=== PATIENT | female | born 1960 | race Hispanic/Latino ===

== ENCOUNTER 2018-04-26 20:58 | Emergency (ER) | payer MEDICAID ==
[2018-04-26 20:58] VITALS: BMI 42.5
[2018-04-26 21:36] LABS: SQUAMOUS EPITHIAL 1 /hpf (0-5); URINE BACTERIA RARE (<OCC); URINE BILIRUBIN NEGATIVE (NEGATIVE); URINE BLOOD NEGATIVE (NEGATIVE); URINE CLARITY Hazy (Clear); URINE COLOR Yellow (YELLOW); URINE GLUCOSE (UA) NORMAL (Normal); URINE LEUKOCYTE ESTERASE 2+ Leu/uL (Negative); URINE PROTEIN NEGATIVE (NEGATIVE); URINE UROBILINOGEN NORMAL mg/dL (0.2-1.0)
--- NOTE | 2018-04-26 21:41 | C.PDOC ---
History Of Present Illness 58 y/o F c PMHx recurrent UTI p/w dysuria and lower abdominal pain. Denies fever, vomiting. States last took cipro in February, symptoms went away completely before returning intermittently for the last 5 weeks. I reviewed previous cultures, all sensitive to Ciprofloxacin. Time Seen by Provider: 04/26/18 21:15 Chief Complaint (Nursing): Abdominal Pain Past Medical History Vital Signs: Last Vital Signs Temp 97.7 F 04/26/18 21:05 Pulse 100 H 04/26/18 21:05 Resp 18 04/26/18 21:05 BP 139/85 04/26/18 21:05 Pulse Ox 96 04/26/18 21:05 - Medical History PMH: Bronchitis - [facility] Procedures D & C NEC (01/08/13) LAPAROSCOP REMOVE OVARIES/TUBES (01/08/13) LAPAROSCOPIC TOTAL ABDOMINAL HYSTERECTOMY (01/08/13) Family History: States: No Known Family Hx - Social History Hx Alcohol Use: No Hx Substance Use: No - Immunization History Hx Tetanus Toxoid Vaccination: No Hx Influenza Vaccination: No Hx Pneumococcal Vaccination: No Review Of Systems Except As Marked, All Systems Reviewed And Found Negative. Constitutional: Negative for: Fever Respiratory: Negative for: Shortness of Breath Physical Exam - Physical Exam Appears: Non-toxic, No Acute Distress Skin: Normal Color Head: Normacephalic Oral Mucosa: Moist Cardiovascular: Rhythm Regular Respiratory: No Accessory Muscle Use Gastrointestinal/Abdominal: Soft Extremity: No Deformity Neurological/Psych: Oriented x3 Gait: Steady ED Course And Treatment O2 Sat by Pulse Oximetry: 96 Disposition - Disposition Referrals: [facility] [Outside] Disposition: HOME/ ROUTINE Disposition Time: 21:39 Condition: STABLE Prescriptions: Ciprofloxacin [Cipro] 500 mg PO BID #20 tab Instructions: Urinary Tract Infections in Adults - Clinical Impression Clinical Impression: UTI (urinary tract infection)
[2018-04-26 22:27] VITALS: BP 120/70; PULSE 80; RESP 14; TEMP 98; O2SAT 97
== END 2018-04-26 22:25 | disposition home or self-care (01) ==
LOC: C.ER 20:58
DX: N39.0 Urinary tract infection, site not specified (principal)